=== PATIENT | female | born 1965 ===

== ENCOUNTER 2024-09-06 11:30 | Inpatient (IN) | payer OTHER ==
[~2024-09-06] VITALS: Ht 157.5 cm; Wt 82.6 kg
[2024-09-06 14:28] LABS: PH,URINE 5.5 (5.0-8.0); URINE APPEARANCE Clear; URINE BILIRRUBIN Negative (NEGATIVE); URINE COLOR Yellow; URINE KETONE Trace (NEGATIVE); URINE LEUKOCYTE Trace; URINE NITRATE Negative; URINE PROTEIN Trace (NEGATIVE)
[2024-09-06] MEDS ORDERED: METFORMIN HCL1000 M2 PO (14:30)
[2024-09-06] MEDS ORDERED: GLIPIZIDE XL10 MG PO (14:31)
[2024-09-06 14:32] LABS: URINE BACTERIA 9062.4 uL (0.0-1933); URINE RBC 7.2 uL (0.0-20.8); URINE WBC 86.9 uL (0.0-23.2)
[2024-09-06] MEDS ORDERED: LIPITOR40 MG PO (14:32)
[2024-09-06] MEDS ORDERED: HUMALOG100 UNIT/2 (14:32)
[2024-09-06] MEDS ORDERED: AVAPRO300 MG PO (14:32)
[2024-09-06 14:33] VITALS: BP 150/90
[2024-09-06] MEDS ORDERED: INDAPAMIDE1.25 MG PO (14:33)
[2024-09-06 14:34] LABS: PROTHROMBIN TIME 10.9 SECONDS (9.0-11.5)
[2024-09-06 14:36] LABS: URINE BLOOD Trace; URINE GLUCOSE >=1000 MG/DL (NEGATIVE)
[2024-09-14] MEDS ORDERED: METRONIDAZOLE/SODIUM CHLORIDE 500 MG/100 ML PIGGYBACK IV ONE (14:27)
[2024-09-14] MEDS ORDERED: CEFTRIAXONE SODIUM 2,000 MG VIAL ONE (14:27)
[2024-09-14] MEDS ORDERED: LATANOPROST2.5 ML (15:34)
[2024-09-14] MEDS ORDERED: AMLODIPINE BESY10 MG (15:34)
[2024-09-14] MEDS ORDERED: TIMOLOL MALEATE5 M4 (15:34)
[2024-09-14] MEDS ORDERED: ONDANSETRON HCL 2 MG/ML VIAL IV PRN (17:45)
[2024-09-14] MEDS ORDERED: MORPHINE SULFATE 4 MG/ML CARTRIDGE IV PRN (17:45)
[2024-09-14] MEDS ORDERED: OxyCODONE HCL 5 MG TABLET (ROXICODONE) PO PRN (17:45)
[2024-09-14] MEDS ORDERED: RINGERS SOLUTION,LACTATED 1,000 ML IV SCH (17:45)
[2024-09-14] MEDS ORDERED: MORPHINE SULFATE 2 MG/ML CARTRIDGE IV ONE (18:05)
[2024-09-14] MEDS ORDERED: MORPHINE SULFATE 4 MG/ML VIAL IV ONE ×2 (18:35→19:50)
[2024-09-14] MEDS ORDERED: ACETAMINOPHEN 500 MG GEL..CAP PO ONE (19:38)
[2024-09-14] MEDS ORDERED: INSULIN REGULAR, HUMAN 1,000 UNIT/10 ML UNITS ONE (19:54)
[2024-09-14] MEDS ORDERED: INSULIN REGULAR, HUMAN 1,000 UNIT/10 ML UNITS IV ONE (20:00)
[2024-09-14] MEDS ORDERED: ACETAMINOPHEN 500 MG GEL..CAP PO SCH (20:00)
[2024-09-14 20:52] LABS: HEMATOCRIT 36.8 % (36.0-45.00); HEMOGLOBIN 12.2 g/dL (12.0-15.00); MEAN CORPUSCULAR HEMOGLOBIN 29.4 pg (27.00-32.0); MEAN CORPUSCULAR HGB CONC 33.1 g/dl (32.0-36.0); PLATELET COUNT 443 K/uL (150-450); RED BLOOD COUNT 4.13 M/uL (4.00-6.00); RED CELL DISTRIBUTION WIDTH 13.8 % (11.5-14.5)
[2024-09-14] MEDS ORDERED: FAMOTIDINE/PF 20 MG/2 ML VIAL IV PUSH SCH (21:00)
[2024-09-14] MEDS ORDERED: SIMETHICONE 125 MG CAPSULE PO SCH (21:00)
[2024-09-14 21:01] VITALS: BP 136/86; O2SAT 91
[2024-09-14] MEDS ORDERED: DEXTROSE 50 % IN WATER 0.5 G/ML DISP.SYRIN IV PRN (22:00)
[2024-09-14] MEDS ORDERED: ENALAPRILAT DIHYDRATE 1.25 MG/ML VIAL IV PRN (22:00)
[2024-09-14] MEDS ORDERED: INSULIN LISPRO 1,000 UNIT/10 ML UNITS SUBCUTANEO PRN (22:00)
[2024-09-15] VITALS: BP 146/95
[2024-09-15] MEDS ORDERED: METOCLOPRAMIDE HCL 5 MG/ML VIAL IV SCH (01:00)
[2024-09-15] MEDS ORDERED: GABAPENTIN 300 MG CAPSULE PO SCH (01:00)
[2024-09-15] MEDS ORDERED: CELECOXIB 200 MG CAPSULE PO SCH (05:00)
[2024-09-15 06:56] LABS: HEMOGLOBIN 13.2 g/dL (12.0-15.00); MEAN CELL VOLUME 87.1 fL (80.00-100.00); MEAN CORPUSCULAR HEMOGLOBIN 29.4 pg (27.00-32.0); MEAN CORPUSCULAR HGB CONC 33.7 g/dl (32.0-36.0); PLATELET COUNT 442 K/uL (150-450); RED BLOOD COUNT 4.48 M/uL (4.00-6.00); RED CELL DISTRIBUTION WIDTH 14.4 % (11.5-14.5)
[2024-09-15 07:47] LABS: ALBUMIN 3.7 gm/dL (3.4-5.0); CALCIUM 10.5 mg/dL (8.5-10.1); CREATININE SERUM 0.68 mg/dL (0.55-1.02); GFR 87.96; PHOSPHOROUS 3.4 mg/dL (2.5-4.9); POTASSIUM 3.71 mEq/L (3.5-5.1)
[2024-09-15 07:54] LABS: MAGNESIUM 1.4 mg/dL (1.8-2.4)
[2024-09-15 08:03] VITALS: BP 133/72; O2SAT 90
[2024-09-15] MEDS ORDERED: HYOSCYAMINE SULFATE 0.125 MG TAB.SUBL SL SCH (09:00)
[2024-09-15] MEDS ORDERED: LACTULOSE 20 G/30 ML BLIST.PACK PO SCH (09:00)
[2024-09-15] MEDS ORDERED: INDAPAMIDE 1.25 MG TABLET PO SCH (09:00)
[2024-09-15] MEDS ORDERED: IRBESARTAN 300 MG TABLET PO SCH (09:00)
[2024-09-15] MEDS ORDERED: LACTOBACILLUS ACIDOPHILUS 1 CAP CAP PO SCH (09:00)
[2024-09-15] MEDS ORDERED: MAGNESIUM SULFATE IN WATER 50 ML IV NR (12:00)
[2024-09-15 15:47] VITALS: BP 119/82; O2SAT 96
[2024-09-15] MEDS ORDERED: ATORVASTATIN CALCIUM 40 MG TABLET PO SCH (17:00)
[2024-09-15] MEDS ORDERED: ENOXAPARIN SODIUM 40 MG/0.4 ML SYRINGE SUBCUTANEO SCH (17:00)
[2024-09-15] MEDS ORDERED: POLYETHYLENE GLYCOL 3350 17 GM BLIST.PACK PO SCH (17:00)
[2024-09-16 00:40] VITALS: BP 108/74; O2SAT 97
[2024-09-16 06:03] LABS: hav igm Negative (Negative); hcv Non Reactive (Non Reactive); hep b c Negative (Negative); hep b s ag Negative (Negative)
[2024-09-16 07:23] LABS: HEMATOCRIT 33.6 % (36.0-45.00); HEMOGLOBIN 11.4 g/dL (12.0-15.00); MEAN CORPUSCULAR HEMOGLOBIN 29.5 pg (27.00-32.0); PLATELET COUNT 370 K/uL (150-450); RED BLOOD COUNT 3.86 M/uL (4.00-6.00); RED CELL DISTRIBUTION WIDTH 14.4 % (11.5-14.5)
[2024-09-16 08:00] VITALS: BP 146/89; O2SAT 95
[2024-09-16 08:02] LABS: CALCIUM 10.2 mg/dL (8.5-10.1); CREATININE SERUM 0.82 mg/dL (0.55-1.02); GFR 70.87; MAGNESIUM 2.2 mg/dL (1.8-2.4); PHOSPHOROUS 2.5 mg/dL (2.5-4.9); POTASSIUM 3.64 mEq/L (3.5-5.1)
[2024-09-16] MEDS ORDERED: ENOXAPARIN SODIUM 40 MG/0.4 ML SYRINGE SUBCUTANEO SCH ×2 (09:00→17:00)
== END 2024-09-16 11:15 | disposition home or self-care (01) | DRG 330 ==
LOC: SURH 09-14 07:00 → O/R 09-14 10:20 → SURH 09-14 11:30
PROVIDERS: Internal Medicine Geriatric Medicine; ADMIT Colon & Rectal Surgery; ATTEND Colon & Rectal Surgery
PROC: 07BC4ZX Excision of Pelvis Lymphatic, Percutaneous Endoscopic Approach, Diagnostic (ICD-10-PCS; 2024-09-14)
PROC: 0DTF4ZZ Resection of Right Large Intestine, Percutaneous Endoscopic Approach (ICD-10-PCS; principal; 2024-09-14 07:00)
DX: D12.3 Benign neoplasm of transverse colon (principal); C18.3 Malignant neoplasm of hepatic flexure